=== PATIENT | female | born 1945 | race Caucasian/White ===

== ENCOUNTER → 2016-09-08 | Outpatient (CLI) | payer MEDICARE ==
[~2016-09-08] MED LIST: CA C1TAB26 PO; CATHETER FLUSH 10 ML SYR IV PRN; CETI10TA17 PO; IOHEXOL 350 MG/ML 100 ML (OMNIPAQUE 350) VIAL IV ONE; NS 100 ML (IVPB) BAG IV ONE
--- NOTE | 2016-09-08 14:48 | Diagnostic Imaging Report ---
PROCEDURE: CT chest with contrast, CT abdomen and pelvis with and without contrast. TECHNIQUE: Pre and post intravenous contrast axial imaging of the abdomen and pelvis and post contrast axial imaging of the chest were performed. INDICATION: Liver and lung nodules seen based on CT scan reportedly performed in [place] recently. CONTRAST: 100 mL of Omnipaque 350 is administered intravenously. FINDINGS: CT chest: There is a pulmonary nodule measuring 1 cm in the left lung base along the inferior aspect of the major fissure. It is minimally larger compared to 2009 exam when it measured 0.8 cm. Such a long-standing nodule is almost certainly benign despite the slight apparent enlargement. There is no significant consolidation or mass. There is no mediastinal mass. No significantly enlarged mediastinal or hilar lymphadenopathy. No axillary lymphadenopathy is seen. There are mild degenerative changes in the mid to lower thoracic spine. CT abdomen and pelvis: There is a 3 cm hyperenhancing mass in the left hepatic lobe, stable from 2009, with features compatible with a hemangioma. The rest of the liver appears unremarkable. The gallbladder demonstrates no calcified stones. The spleen is not enlarged. The pancreas and the adrenal glands appear unremarkable. There is nonspecific mild thickening in the pylorus and the first part of the duodenum without a focal mass identified. This may relate to gastroduodenitis. Correlate clinically and with endoscopy if needed. The kidneys have symmetric enhancement and contrast excretion. There is no hydronephrosis. The abdominal aorta is normal in caliber. No para-aortic significantly enlarged lymph node is seen. A tiny fat-containing umbilical hernia is seen. There is suggestion of prior hysterectomy. There is no bowel obstruction. No significant free fluid or fluid collection in the abdomen or pelvis seen. The osseous structures appear grossly unremarkable. IMPRESSION: CT chest: Left lung base 1 cm lobulated nodule was seen in 2009 and measured 0.8 cm, minimally enlarged. This is likely a benign noncalcified granuloma. Given the slight change, followup low-dose unenhanced CT chest in six months is recommended. CT abdomen and pelvis: 1. There is mild nonfocal thickening in the pylorus and first part of the duodenum, which may relate to gastroduodenitis. Correlate clinically and with endoscopy if needed. 2. A 2.9 cm left hepatic mass consistent with hemangioma. 3. Tiny fat-containing umbilical hernia. Dictated by: Dictated on workstation # [id number]
== END ==
LOC: RAD 09:29
PROVIDERS: ATTEND Nurse Practitioner Family
DX: R91.1 Solitary pulmonary nodule (principal); K76.9 Liver disease, unspecified
CPT/HCPCS: 71260; 74178

== ENCOUNTER → 2017-04-13 | Outpatient (CLI) | payer MEDICARE ==
[~2017-04-13] MED LIST changes: -CATHETER FLUSH 10 ML SYR IV PRN; -IOHEXOL 350 MG/ML 100 ML (OMNIPAQUE 350) VIAL IV ONE; -NS 100 ML (IVPB) BAG IV ONE
--- NOTE | 2017-04-13 11:03 | Diagnostic Imaging Report ---
PROCEDURE: CT chest without contrast. TECHNIQUE: Multiple contiguous axial images were obtained through the chest without the use of intravenous contrast. INDICATION: Pulmonary nodule, followup. Asymptomatic. COMPARISON STUDIES: 09/08/2016, 04/27/2009 and 10/22/2006 FINDINGS: The visualized portion of the upper abdomen demonstrates a low density mass of the left lobe of liver, approximately 3 cm in size, generally stable. IMPRESSION: Small solid nodule in the left lower lobe lung base, relatively stable from previous imaging but did demonstrate interval increase in size from the older studies. FINDINGS: Evaluation of the mediastinal structures is limited given lack of contrast. No suggestion for pathologically enlarged mediastinal lymph nodes. Heart size within normal limits. Thoracic aorta demonstrates a slight prominent appearance the aorta at 3.5 cm. The lung rodrigues demonstrate no infiltrate. Approximately 10 x 7 mm nodule in the left lung base just posterior to the fissure and above the diaphragm. Baseline measured approximately 7 x 5 mm. IMPRESSION: 1. Small nodule at the left lung base, stable from most recent imaging. However, this had shown slight interval increase in size from a baseline assessment. This favors a likely benign process. However, a total of a two-year timeframe for stability would be recommended for reassurance of benignity. 2. Otherwise negative for acute abnormality of the chest. 3. Low-density mass in the left lobe of the liver appearing stable, features are most compatible with a cavernous hemangioma. Dictated by: Dictated on workstation # [id number]
== END ==
LOC: RAD 09:51
PROVIDERS: ATTEND Nurse Practitioner Family
DX: R91.1 Solitary pulmonary nodule (principal); R16.0 Hepatomegaly, not elsewhere classified
CPT/HCPCS: 71250

== ENCOUNTER → 2018-12-26 | Outpatient (CLI) | payer MEDICARE, OTHER ==
--- NOTE | 2018-12-27 19:08 | Diagnostic Imaging Report ---
INDICATION: Screening. Digital mammogram bilateral screening with 3D tomosynthesis. The current study was also evaluated with a Computer Aided Detection (CAD) system. This study was compared to the prior exams of 02/24/2015 and 02/13/2014. At this time, there are no current complaints. FINDINGS: There are scattered fibroglandular densities in both breasts which could obscure a lesion. When compared to the prior study, there has been no significant change. There is no primary or secondary sign of malignancy noted. The 3D tomographic views also fail to show any sign of malignancy. IMPRESSION: 1. There is no evidence for malignancy. 2. The patient should have her annual bilateral screening mammogram on schedule in December of 2019. ACR BI-RADS Category 1: Negative. Result letter will be mailed to the patient. Note: At least 10% of breast cancer is not imaged by mammography. Dictated by: Dictated on workstation # [id number]
== END ==
LOC: RAD 10:22
PROVIDERS: ATTEND Nurse Practitioner Family
DX: Z12.31 Encounter for screening mammogram for malignant neoplasm of breast (principal)
CPT/HCPCS: 77067

== ENCOUNTER → 2019-03-27 | Outpatient (CLI) | payer MEDICARE, OTHER ==
[2019-03-27 10:31] LABS: ABSOLUTE RETIC # 65 10e9/L (24-90); BASOPHILS % (AUTO) 0 % (0-10); EOSINOPHILS # (AUTO) 0.1 10^3/uL (0.0-0.3); EOSINOPHILS % (AUTO) 2 % (0-10); HEMATOCRIT 45 % (35-52); HEMOGLOBIN 14.6 G/DL (11.5-16.0); LYMPHOCYTES # (AUTO) 1.8 X 10^3 (1.0-4.0); LYMPHOCYTES % (AUTO) 38 % (12-44); MEAN CORPUSCULAR HEMOGLOBIN 30 PG (25-34); MEAN CORPUSCULAR HGB CONC 33 G/DL (32-36); MEAN CORPUSCULAR VOLUME 94 FL (80-99); MEAN PLATELET VOLUME 9.6 FL (7.4-10.4); MONOCYTES # (AUTO) 0.8 X 10^3 (0.0-1.0); MONOCYTES % (AUTO) 17 % (0-12); NEUTROPHILS # (AUTO) 2.1 X 10^3 (1.8-7.8); NEUTROPHILS % (AUTO) 43 % (42-75); PLATELET COUNT 247 10^3/uL (130-400); RED CELL DISTRIBUTION WIDTH 13.4 % (10.0-14.5); RETICULOCYTE % 1.35 % (0.50-2.40); WHITE BLOOD COUNT 4.8 10^3/uL (4.3-11.0)
[2019-03-27 11:05] LABS: BAND NEUTROPHILS 0 %; BASOPHILS % (MANUAL) 0 %; EOSINOPHILS % (MANUAL) 3 %; LYMPHOCYTES % (MANUAL) 45 %; MONOCYTES % (MANUAL) 9 %; NEUTROPHILS % (MANUAL) 43 %; RBC MORPH NORMAL
== END ==
LOC: LAB 10:06
PROVIDERS: ATTEND Nurse Practitioner Family
DX: D72.819 Decreased white blood cell count, unspecified (principal)
CPT/HCPCS: 36415; 85007; 85027; 85045

== ENCOUNTER → 2021-02-23 | Outpatient (CLI) | payer MEDICARE, OTHER ==
--- NOTE | 2021-02-24 08:38 | Diagnostic Imaging Report ---
Indication: Routine screening. Comparison is made with prior mammogram from 12/26/2018 and 02/24/2015. 2-D and 3-D bilateral screening mammography was performed with CAD. Scattered fibroglandular densities are identified bilaterally. The parenchymal pattern is stable. No mass or malignant appearing microcalcifications are seen. Axillae are unremarkable. IMPRESSION: BI-RADS Category 1 No mammographic features suspicious for malignancy are identified. ACR BI-RADS Category 1: Negative. Result letter will be mailed to the patient. Note: At least 10% of breast cancer is not imaged by mammography. Dictated by: Dictated on workstation # [id number]
== END ==
LOC: RAD 15:15
PROVIDERS: ATTEND Nurse Practitioner Family
DX: Z12.31 Encounter for screening mammogram for malignant neoplasm of breast (principal)
CPT/HCPCS: 77063; 77067